=== PATIENT | male | born 1970 | race Caucasian/White ===

== ENCOUNTER 2016-12-11 06:26 | Emergency (ER) | payer OTHER ==
[2016-12-11 06:32] VITALS: BP 137/84; PULSE 76; RESP 16; TEMP 97.9; O2SAT 97
--- NOTE | 2016-12-11 06:48 | EDPHY ---
H & P Stated Complaint: dog bite L forearm; [facility] Time Seen by Provider: 12/11/16 06:44 HPI/ROS: Chief Complaint: Dog bite HPI: 46-year-old male sustained a dog bite to his left forearm this morning. Patient was jogging with his dog on a leash when a no other dog approach. The 2 dogs began to fight and in an attempt to lift the other dog off and he sustained a bite to his left arm from the other dog. He was able to speak with the docks under the dog is up-to-date on the rabies vaccinations and is able to be observed. He is up-to-date in his tetanus. Does sustained a large laceration on his left forearm. No numbness or weakness. No fevers or chills. No nausea or vomiting. ROS: 10 point Review of Systems is negative except as noted in the HPI. PMH: Denies Medications: None Allergies: No known drug allergies Social History: [No] smoking Family History: [non-contributory] Physical Exam: General: Awake, alert, no acute distress Left forearm. Patient has a large 5 cm laceration over his radial left proximal forearm over the brachioradialis muscle. There is a 1 cm puncture into the brachioradialis. He has full range of motion in flexion and extension. Rate sensations intact in radial, median and ulnar nerve distribution. There is no tendon involvement. There are no noted foreign bodies. Skin: No rash - Personal History Current Tetanus/Diphtheria Vaccine: Yes - Medical/Surgical History Hx Asthma: No Hx Chronic Respiratory Disease: No Hx Diabetes: No Hx Cardiac Disease: No Hx Renal Disease: No Hx Cirrhosis: No Hx Alcoholism: No Hx HIV/AIDS: No Hx Splenectomy or Spleen Trauma: No Other PMH: PSHx: tooth extraction. PMHx: denies - Social History Smoking Status: Never smoked Constitutional: Initial Vital Signs Temperature (C) 36.6 C 12/11/16 06:28 Heart Rate 76 12/11/16 06:28 Respiratory Rate 16 12/11/16 06:28 Blood Pressure 137/84 H 12/11/16 06:28 O2 Sat (%) 97 12/11/16 06:28 O2 Delivery Mode Room Air Allergies/Adverse Reactions: No Known Allergies Allergy (Unverified 12/11/16 06:28) Home Medications: Medication Instructions Recorded Amoxicillin/Clavulanate Pot 875 mg PO BID #14 tab 12/11/16 [Augmentin 875 MG TAB (*)] Medical Decision Making Procedures: Procedure: Laceration repair. Verbal consent was obtained from the patient. The 5 cm laceration on the left forearm was anesthetized in the usual fashion. The wound was irrigated, draped and explored to its base with a gloved finger. Laceration did penetrate the brachioradialis muscle. There are no foreign bodies noted. The bottom of the laceration was identified. The brachioradialis was range with full range of motion to evaluate for any other deep tissue involvement. No tendon injury was identified. The wound was repaired with 5, 4-0 Ethilon horizontal mattress sutures. The wound repair was uncomplicated. The procedure was performed by myself. ED Course/Re-evaluation: Wound has been irrigated with 1 L of normal saline. I have thoroughly explored and there are no foreign bodies. Given the depth of the wound and it size I will start the patient on Augmentin for infection prophylaxis. He will follow up with primary care physician for re-evaluation. Return for worsening. - Data Points Medications Given: Discontinued Medications Amoxicillin/Clavulanate Potassium (Augmentin 875mg) 875 mg PO EDNOW ONE PRN Reason: Protocol Stop: 12/11/16 06:51 Last Admin: 12/11/16 06:58 Dose: 875 mg Departure - Departure Disposition: Home, Routine, Self-Care Clinical Impression: Dog bite, Laceration Condition: Good Instructions: Animal Bite (ED), Care For Your Stitches (ED), Laceration (ED) Additional Instructions: Please take your full course of antibiotics. Sutures need to be removed in 10 days. Return to the emergency depart for increasing pain, redness around the wound, discharge from the wound, fevers, chills, numbness, weakness, or any other concerns. Referrals: Mike Peres MD [Primary Care Provider] - As per Instructions Prescriptions: Amoxicillin/Clavulanate Pot [Augmentin 875 MG TAB (*)] 875 mg PO BID #14 tab
[2016-12-11] MEDS ORDERED: AMOXICILLIN/CLAVULANATE POT 875/125 MG TAB PO ONE (06:50)
== END 2016-12-11 07:43 | disposition home or self-care (01) ==
PROC: 0HQEXZZ Repair Left Lower Arm Skin, External Approach (ICD-10-PCS; principal; 2016-12-11)
DX: S51.852A Open bite of left forearm, initial encounter (principal); W54.0XXA Bitten by dog, initial encounter